=== PATIENT | male | born 1990 | race Caucasian/White ===

== ENCOUNTER → 2023-12-07 | Outpatient (CLI) | payer BC, SELFPAY ==
--- NOTE | 2023-12-04 16:00 | LES_PTH ---
PATHOLOGY RESULTS PATIENT: PASCUAL GOULD LOC: [facility] U#:[id number] AGE/SX: 33/M ROOM: RE12/07/[address]: Dr. Jarrett Allen MD : [id number] BED: DIS: 12/07/2023 SPEC #: [id number] RECD: 12/07/23 10:12 STATUS: PASQUALE REArron #: [id number] RIMMA: 12/04/23 16:[address]: Jarrett Allen DEPT: SURGICAL PATHOLOGY RECD BY: Dee Dee Jacobson ENTERED: 12/07/23 10:41 SP TYPE: Lesion OTHR DR: No Primary Care Phys Tissues: Skin of eyelid, NOS Procedures: Surgery Specimen Level IV HEADER OPERATION: Right upper eyelid lesion excision PRE-OP DIAGNOSIS: Right upper eyelid lesion TISSUE SUBMITTED: Right upper eyelid lesion MICROSCOPIC DIAGNOSIS Right upper eyelid lesion, biopsy: Consistent with benign eccrine cyst, mildly inflamed. AM:yokasta 12/08/2023 MICROSCOPIC DESCRIPTION Slides are reviewed. GROSS DESCRIPTION Received in fixative is one container labeled with the patient's name and designated right upper eyelid lesion. The specimen consists of an irregular fragment of light romero soft tissue measuring 0.5 x 0.2 x 0.1 cm. The specimen is totally submitted in one cassette. / AM:yokasta 12/07/2023 TC:5 CPT: 26722
--- OUTSIDE RECORDS SUMMARY | 2023-12-07 11:53 | XMS RPT_ITS | CCD ---
Author Name Unknown Address [address] [place] [address] Organization [facility] Care Team Providers Care Winder Operator Name Role Phone Unavailable Primary Care Provider Unavailabl e ANNA DEVI Referring Unavailable Unavailable Primary Care Provider Unavailabl e PROVIDER, UNKNOWN Attending Unavailable PROVIDER, UNKNOWN Admitting Unavailable PROVIDER, UNKNOWN Admitting Unavailable PROVIDER, UNKNOWN Attending Unavailable ROGELIO MEZA Attending Unavailable BRANDAN SEARS Referring Unavailable PROVIDER, UNKNOWN Admitting Unavailable Medications Current Medications Medication Drug Class(es) Dates Sig (Normalized) Sig (Original) acetaminophen 500 mg oral tablet (3 sources) Start: 07-17-2023 End: 07-17-2023 take 1 tablet by mouth every six hours as needed for pain acetaminophen (TYLENOL) 500 MG tablet Take 1 Tablet by mouth every 6 hours as needed for Pain or Fever. 30 Tablet 0 07/17/2023 Active acetaminophen 325 mg / oxyCODONE hydrochloride 5 mg oral tablet (2 sources) Opioid Agonist Start: 07-17-2023 End: 07-20-2023 take 1 tablet by mouth every six hours as needed for pain oxyCODONE-acetamino phen (PERCOCET) 5-325 mg per tablet Indications: Lumbar transverse process fracture, closed, initial encounter (HCC) Take 1 Tablet by mouth every 6 hours as needed for Pain for up to 3 days. 12 Tablet 0 07/17/2023 07/20/2023 Active lidocaine 0.04 mg/mg medicated patch (3 sources) Antiarrhythmic, Amide Local Anesthetic Start: 07-17-2023 lidocaine (LIDODERM) 4 % patch Completed/Discontinued Medications Medication Drug Class(es) Dates Sig (Normalized) Sig (Original) cyclobenzaprine hydrochloride 10 mg oral tablet (1 source) Muscle Relaxant Start: 12-09-2021 take 0.5-1 tablets by mouth three times daily as needed for muscle spasms cyclobenzaprine (FLEXERIL) 10 mg tablet Indications: Right leg pain Take 0.5-1 tablets by mouth three times daily as needed for muscle spasm. 20 tablet 0 12/09/2021 Active Problems Active Problems Problem Classification Problem Date Documented Da te Episodic/Chronic Abdominal pain (1 source) Right flank pain; Translations: [Unspecified abdominal pain] 07-17-2023 Episodic Conditions associated with dizziness or vertigo (1 source) Dizziness; Translations: [Dizziness and giddiness] Episodic E Codes: Fall (1 source) Fall; Translations: [Unspecified fall, initial encounter] 07-17-2023 Episodic Other fractures (1 source) Closed fracture lumbar vertebra, transverse process ; Translations: [Unspecified fracture of unspecified lumbar vertebra, initial encounter for closed fracture] 07-17-2023 Episodic Past or Other Problems Problem Classification Problem Date Documented Da te Episodic/Chronic Other connective tissue disease (1 source) Pain in right leg; Translations: [Right leg pain] Onset: 12-10-2021 Episodic Results Test Name Value Interpretation Reference Range Facil ity Vital Signs Date Time Vital Sign Value Performing Clinician Faci lity 07-17-2023 14:03-0400 Body temperature 98.2 [degF] Rogelio Meza MD Work Phone: [employer] 07-17-2023 14:03-0400 Diastolic blood pressure 89 mm[Hg] Rogelio Meza MD Work Phone: [employer] 07-17-2023 14:03-0400 Heart rate 85 /min Rogelio Meza MD Work Phone: [employer] 07-17-2023 14:03-0400 Respiratory rate 16 /min Rogelio Meza MD Work Phone: [employer] 07-17-2023 14:03-0400 SaO2% (BldA) [Mass fraction] 99 % Rogelio Meza MD Work Phone: [employer] 07-17-2023 14:03-0400 Systolic blood pressure 139 mm[Hg] Rogelio Meza MD Work Phone: [employer] 09-18-2022 15:49-0500 Body temperature 98.8 [degF] Blaine John APRN.CNP Work Phone: [facility] 09-18-2022 15:49-0500 Body weight 96.34 kg Blaine Pendlebury [employer] Work Phone: [facility] 09-18-2022 15:49-0500 Diastolic blood pressure 74 mm[Hg] Blaine Pendlebury [employer]CH[employer]IC Work Phone: [facility] 09-18-2022 15:49-0500 Heart rate 79 /min Blaine Pendlebury [employer] Work Phone: [facility] 09-18-2022 15:49-0500 Respiratory rate 16 /min Blaine Pendlebury [employer] Work Phone: [facility] 09-18-2022 15:49-0500 SaO2% (BldA) [Mass fraction] 98 % [facility] [employer]BI[employer] MECH[employer]IC Work Phone: [facility] 09-18-2022 15:49-0500 Systolic blood pressure 126 mm[Hg] Blaine [facility] [employer] MECH[employer]IC Work Phone: [facility] Encounters Encounter Date Encounter Type Care Provider Facility Start: 07-17-2023 End: 07-17-2023 Emergency department patient visit ROGELIO MEZA Facility:[facility] Start: 07-17-2023 End: 07-17-2023 ambulatory UNKNOWN PROVIDER Facility:[facility] Start: 07-17-2023 End: 07-17-2023 Subsequent hospital visit by physician Ed Xray 1 [facility] Radiology Procedures Date Procedure Procedure Detail Performing Clinician Start: 07-17-2023 Ct abdomen & pelvis w/contrast material Rogelio Meza MD Work Phone: Start: 07-17-2023 CT of thoracic and l umbar spine Rogelio Meza MD Work Phone: Start: 07-17-2023 Antibody hiv-1&hiv-2 single result Rogelio Meza MD Work Phone: Start: 07-17-2023 Basic metabolic pane l calcium total Rogelio Meza MD Work Phone: Start: 10-06-2023 Radiologic exam ches t 2 views Brandan Sears [employer]CH[employer]IC Work Phone: Plan of Treatment Date Care Activity Detail Author Start: 02-28-2038 Shingles (RZV) Vacci ne (1 of 2) Shingles (RZV) Vaccine (1 of 2) [facility] Start: 06-12-2023 COVID-19 Vaccine ( season) COVID-19 [facility]ine [facility] Start: 06-12-2023 Influenza vaccination Influenza Vacc ine (#1) [facility] Start: 02-28-2023 Lipid panel Cholesterol [facility] Start: 06-12-2022 Influenza vaccination INFLUENZA (#1) [facility] Start: 10-12-2021 DEPRESSION ASSESSMENT DEPRESSION ASS ESSMENT [facility] Start: 08-15-2021 COVID-19 VACCINE (3 - Booster for Pfizer series) COVID-19 VACCINE (3 - Booster for Pfizer series) [facility] Start: 02-28-2015 HPV Vaccine (optiona l start 27-45 years) HPV Vaccine (optional start 27-45 years) [facility] Start: 02-28-2007 Urine microalbumin profile DTAP,TDAP,TD (1 - Tdap) [facility] Start: 02-28-2006 HEPATITIS C SCREENING HEPATITIS C SC REENING [facility] Start: 02-28-2006 Hepatitis C screening Hepatitis C An tibody [facility] Start: 02-28-2006 HIV SCREENING HIV SCREENING [facility] Start: 02-28-2006 Tetanus + diphtheria + acellular pertussis vaccine (product) Tdap Booster [facility] Start: 02-28-1994 PNEUMOCOCCAL (1 - PCV) PNEUMOCOCCAL (1 - PCV) [facility] Start: 1988 HEPATITIS B (1 of 3 - 3-dose series) HEPATITIS B (1 of 3 - 3-dose series) [facility] Immunizations Immunization Date Immunization Notes Care Provider John schwartz 12-03-1999 hepatitis B vaccine, adult dosage 1 [facility] 05-31-1999 hepatitis B vaccine, pediatric or pediatric/adolescent dosage Mh 1 [facility] 05-31-1999 trivalent poliovirus vaccine, live, oral 1 [facility] Payers Date Payer Category Payer Unknown [id number] 2023 Unknown [id number] 2023 Worker's Compensation WORKER'[employer] C O[employer] - OTHER WORK CO* OTHER WORKERS COMP [id number] 2023-Present [address] [place] [address] Worker's Comp [id number] 2018 Unknown [employer] C[employer] PPO OOS [id number] 2018-Present [phone] [address] [place] [address] PPO [id number] 2018 Unknown [id number] 1988 Unknown [id number] 1988 Unknown [id number] 1988 Unknown [id number] Social History Date Type Detail Facility Start: 09-18-2022 Tobacco smoking stat RUSTIS Smokes tobacco daily [facility] Start: 09-18-2022 Tobacco use and exposure Smokeless t obacco non-user [facility] Start: 09-18-2022 Alcohol intake Lifetime non-d eulalio (finding) [facility] Start: 09-18-2022 Tobacco Comment [facility] Start: 1990 Sex Assigned At Male [facility] Tobacco smoking stat RUSTIS Tobacco smoking consumption unknown [facility] Start: 1988 Sex Assigned At Not on file M [facility] Gender identity Not on file [facility] Hospital Discharge instructions 07-17-2023 Discharge InstructionsAttachments Note Date & Type Note Facility 07-17-2023 Hospital Discharg e instructions Rogelio Meza MD - 07/17/2023 7:58 PM EDT Do not use tylenol#3 (codeine/acetaminophen), percocet (oxycodone/acetaminophen), vicodin (hydrocodone/acetaminophen), muscle relaxants or any other strong pain medications when driving, caring for children, using tools, working or while doing any activity that would be dangerous if you had been drinking alcohol or were not fully in control of yourself physically and/or mentally. You need to follow some important guidelines if you are taking narcotics that your health care provider prescribed for you: Do not share your narcotic medicine with anyone. If you are seeing more than one health care provider, tell each one that you are taking narcotics for pain. Taking too much can cause an overdose or addiction. When your pain begins to lessen, talk with the health care provider you see for pain about switching to another kind of pain reliever. Store your narcotics safely. Keep them out of reach of children and others in your home. During your Emergency Department evaluation, items were identified that require you to follow up. Your evaluation discovered Indeterminate 1.6 cm right hepatic lobe hypodense lesion, may represent small hemangioma although this is incompletely characterized based on CT scan. It is recommended that you see your doctor to discuss a nonemergent MR liver with dotarem may be considered for further evaluation. to follow up on this problem. It is very important that you follow up as instructed as the issues identified today could be serious. Procedures done during this visit: None The following attachments cannot be sent through Care Everywhere.Flank Pain Discharge Instructions (Andorran)documented in this encounter [facility] Physician Emergency department Note 07-17-2023 Rogelio Meza MD - 07/17/2023 4:14 PM EDT Note Date & Type Note Facility 07-17-2023 Physician Emergen cy department Note Images from the original note were not included. EMERGENCY DEPARTMENT - VISIT NOTE HISTORY OF PRESENT ILLNESS Patient presents with: Fall - Mechanical fall backward from standing, wooden palette landed on top of pt, hit in side and back Concession Attendant: not needed - patient preferred language is Andorran. The history is provided by the Patient. Mustapha Agudelo is a 33 year old male with no significant past medical history per chart review presenting to the ED for R flank pain s/p fall. Reports that approximately 12:30 p.m. he was at work on unwrapping a wooden palette. Reports he slipped on plastic and fell, striking his right flank on some equipment. Denies hitting his head or LOC. He is not on anticoagulation. Since then, describes pain in his right flank that is severe. At times, radiates down his right leg. Walking seems to make it worse. Nothing makes it better. No abdominal pain. No nausea or vomiting. At times, feels short of breath due to the pain. No chest pain. PAST HISTORY --- Pertinent Past History: No significant pmh Pertinent Family History: No family history on file. Pertinent Social History: Social History Occupational History Not on file Tobacco Use Smoking status: Not on file Smokeless tobacco: Not on file Substance and Sexual Activity Alcohol use: Not on file Drug use: Not on file Sexual activity: Not on file PHYSICAL EXAM ---- BP 139/89 Pulse 85 Temp 98.2 F (36.8 C) (Oral) Resp 16 SpO2 99% Constitutional Nursing triage notes reviewed, Vital signs reviewed, Alert, Awake and No acute distress HENT No stridor and Head atraumatic Eyes Nonicteric and Noninjected Neck Supple and No stridor Lungs Clear to auscultation, No wheezing, No rales and No respiratory distress Heart Regular rate and rhythm and No murmurs Abdomen Soft, Nondistended, Nontender and No rebound/guarding : R flank mild TTP w/ small ecchymosis and abrasion; L flank no TTP Back: no midline C/T/L ttp Extremities No edema and No calf tenderness Neuro Alert normally oriented and Normal speech. 5/5 strength b/l UE/LE, sensation intact to light touch throughout. Normal gait Skin Warm and Dry Psych Normal affect, Good eye contact and Cooperative MEDICAL DECISION MAKING and ED COURSE Nursing triage and assessment notes reviewed and incorporated Review of External (Non- ED) Notes: Office visit from in [place] reviewed and shows last seen 09/18/22 for dizziness Management Decisions: Admission considered but pain controlled here, agreeable to DC Medication Management: Medications prescribed - see visit medications. Social Determinants of Health that Impacted Management: Occupational exposure to risk factors, therefore workers comp paper work filled out, encouraged PM&R f/u Independent Test Interpretation: Lab studies reviewed, see ed course CT scans personally reviewed and interpreted, see ed course . Final decision-making pending radiology read. Course & Interpretation of Results: ED Course as of 07/17/232126Jul 17, 2023 1648 COMPLETE BLOOD COUNT W/DIFF (RAPID RESPONSE LABS)(!): WBC 12.9(!) RBC 4.53 Hemoglobin 15.0 Hematocrit 42.7 MCV 94 MCH 33.1 MCHC 35.1 Platelet 349 RDW-CV% 13.1 MPV 7.3(!) Neutrophils 76.5(!) Neutrophil # 9.88(!) Lymphocytes 16.7(!) Lymph Absolute 2.16 Monocytes 5.4 Monocyte Absolute 0.70 Eosinophil 0.8 Eosinophil Absolute 0.11 Basophils 0.6 Basophil # 0.07 MDW 16 CBC is not concerning for clinically significant anemia, or thrombocytopenia. +leukocytosis c/w stress response [JS] 1700 Basic Metabolic Panel: Glucose 89 Sodium 140 Potassium 4.4 Carbon Dioxide 23 Chloride 106 BUN 16 Creatinine 1.20 Calcium 9.9 Anion Gap 15 Estimated GFR 81 BMP is not concerning for clinically significant electrolyte abnormality or JOHN. [JS] 1838 NSGY paged [JS] 2497 CT findings incl incidental discussed w/ pt, [JS] 1952 Pain improved, ok w/ dc [JS] 2125 CT CHEST / ABDOMEN / PELVIS WITH IV CONTRAST I personally reviewed and interpreted CT CAP no free air [JS] 2125 CT T-SPINE AND L-SPINE RECONS W/O CONTRAST I personally reviewed and interpreted L1 TP fx [JS] ED Course User Index [JS] Rogelio Meza MD PROCEDURE NOTE: Initial Fracture Care Informed consent, after discussion of the risks, benefits, and alternatives to the procedure, was obtained verbally from the patient prior to procedure. The patient was identified using two patient identifiers: Yes. The H&P along with required diagnostics are available in Epic: Yes The correct procedure was verified: Yes Procedural site identified: Yes Presence of required equipment verified prior to starting procedure: Yes Patient allergies identified or reviewed: Yes Site marking done: Not indicated A timeout to verify the correct patient, procedure, and site was performed immediately prior to the procedure The patient had a fracture of the L1 and L2 right transverse process. The fracture was not displaced and did not require manipulation for current care The fracture was appropriately immobilized and was neurovascularly intact at discharge. Rogelio Meza MD Medical Decision Makin33 year old male with no significant past medical history per chart review presenting to the ED for R flank pain s/p fall. On arrival, hemodynamically stable, afebrile, no acute distress. Neurologically intact. Exam with tenderness over the right flank with a small overlying ecchymosis. Labs are reassuring as detailed above. CT reveals L1 and L2 TP fractures. No other injuries identified. Per Trauma guidelines, no indication for neurosurgical/spine involvement. Patient does not want to take anything strong or addictive for pain. Amenable to Toradol, muscle relaxants, Lidoderm. Will write for multimodal pain control as an outpatient and give Percocet for breakthrough pain. Patient and in agreement with plan. Incidental liver finding was also discussed with patient and who expressed understanding. Encouraged PCP, PM&R f/u. The patient was given an opportunity to ask questions and none were expressed at that time. Warning signs/precautions for return to the ED were discussed. The patient verbalized understanding and was agreeable to plan. IMPRESSION AND DISPOSITION Clinical Impression Diagnosis Comment Acute right flank pain [R10.9] Fall, initial encounter [W19.XXXA] Lumbar transverse process fracture, closed, initial encounter ([facility]) [S32.009A] Disposition: Home The patient has received a medical screening examination and within reasonable clinical confidence an emergency medical condition was identified and has been stabilized. Counseling: Spoke with the patient and discussed today s findings, in addition to providing specific details for the plan of care and expected course. They were given the opportunity to ask questions. Discussed return precautions and importance of follow-up. Advised to follow-up with pcp, PM&R. Advised to return to the ED for changing or worsening symptoms, new symptoms, complaint specific precautions, and precautions listed on the discharge paperwork. Educated on the common potential side effects of medications prescribed. Rogelio Meza MD [facility] Emergency department Note 07-17-2023 Rogelio Meza MD - 07/17/2023 4:14 PM EDTLuBrandan APRN-TL - 07/17/2023 2:01 PM EDT Note Date & Type Note Facility 07-17-2023 Emergency departm ent Note Images from the original note were not included. EMERGENCY DEPARTMENT - VISIT NOTE HISTORY OF PRESENT ILLNESS Patient presents with: Fall - Mechanical fall backward from standing, wooden palette landed on top of pt, hit in side and back Concession Attendant: not needed - patient preferred language is Andorran. The history is provided by the Patient. Mustapha Agudelo is a 33 year old male with no significant past medical history per chart review presenting to the ED for R flank pain s/p fall. Reports that approximately 12:30 p.m. he was at work on unwrapping a wooden palette. Reports he slipped on plastic and fell, striking his right flank on some equipment. Denies hitting his head or LOC. He is not on anticoagulation. Since then, describes pain in his right flank that is severe. At times, radiates down his right leg. Walking seems to make it worse. Nothing makes it better. No abdominal pain. No nausea or vomiting. At times, feels short of breath due to the pain. No chest pain. PAST HISTORY --- Pertinent Past History: No significant pmh Pertinent Family History: No family history on file. Pertinent Social History: Social History Occupational History Not on file Tobacco Use Smoking status: Not on file Smokeless tobacco: Not on file Substance and Sexual Activity Alcohol use: Not on file Drug use: Not on file Sexual activity: Not on file PHYSICAL EXAM ---- BP 139/89 Pulse 85 Temp 98.2 F (36.8 C) (Oral) Resp 16 SpO2 99% Constitutional Nursing triage notes reviewed, Vital signs reviewed, Alert, Awake and No acute distress HENT No stridor and Head atraumatic Eyes Nonicteric and Noninjected Neck Supple and No stridor Lungs Clear to auscultation, No wheezing, No rales and No respiratory distress Heart Regular rate and rhythm and No murmurs Abdomen Soft, Nondistended, Nontender and No rebound/guarding : R flank mild TTP w/ small ecchymosis and abrasion; L flank no TTP Back: no midline C/T/L ttp Extremities No edema and No calf tenderness Neuro Alert normally oriented and Normal speech. 5/5 strength b/l UE/LE, sensation intact to light touch throughout. Normal gait Skin Warm and Dry Psych Normal affect, Good eye contact and Cooperative MEDICAL DECISION MAKING and ED COURSE Nursing triage and assessment notes reviewed and incorporated Review of External (Non- ED) Notes: Office visit from in [place] reviewed and shows last seen 09/18/22 for dizziness Management Decisions: Admission considered but pain controlled here, agreeable to DC Medication Management: Medications prescribed - see visit medications. Social Determinants of Health that Impacted Management: Occupational exposure to risk factors, therefore workers comp paper work filled out, encouraged PM&R f/u Independent Test Interpretation: Lab studies reviewed, see ed course CT scans personally reviewed and interpreted, see ed course . Final decision-making pending radiology read. Course & Interpretation of Results: ED Course as of 07/17/232126Jul 17, 2023 1648 COMPLETE BLOOD COUNT W/DIFF (RAPID RESPONSE LABS)(!): WBC 12.9(!) RBC 4.53 Hemoglobin 15.0 Hematocrit 42.7 MCV 94 MCH 33.1 MCHC 35.1 Platelet 349 RDW-CV% 13.1 MPV 7.3(!) Neutrophils 76.5(!) Neutrophil # 9.88(!) Lymphocytes 16.7(!) Lymph Absolute 2.16 Monocytes 5.4 Monocyte Absolute 0.70 Eosinophil 0.8 Eosinophil Absolute 0.11 Basophils 0.6 Basophil # 0.07 MDW 16 CBC is not concerning for clinically significant anemia, or thrombocytopenia. +leukocytosis c/w stress response [JS] 1700 Basic Metabolic Panel: Glucose 89 Sodium 140 Potassium 4.4 Carbon Dioxide 23 Chloride 106 BUN 16 Creatinine 1.20 Calcium 9.9 Anion Gap 15 Estimated GFR 81 BMP is not concerning for clinically significant electrolyte abnormality or JOHN. [JS] 183 NSGY paged [JS] 1849 CT findings incl incidental discussed w/ pt, [JS] 1952 Pain improved, ok w/ dc [JS] 2125 CT CHEST / ABDOMEN / PELVIS WITH IV CONTRAST I personally reviewed and interpreted CT CAP no free air [JS] 2125 CT T-SPINE AND L-SPINE RECONS W/O CONTRAST I personally reviewed and interpreted L1 TP fx [JS] ED Course User Index [JS] Rogelio Meza MD PROCEDURE NOTE: Initial Fracture Care Informed consent, after discussion of the risks, benefits, and alternatives to the procedure, was obtained verbally from the patient prior to procedure. The patient was identified using two patient identifiers: Yes. The H&P along with required diagnostics are available in Epic: Yes The correct procedure was verified: Yes Procedural site identified: Yes Presence of required equipment verified prior to starting procedure: Yes Patient allergies identified or reviewed: Yes Site marking done: Not indicated A timeout to verify the correct patient, procedure, and site was performed immediately prior to the procedure The patient had a fracture of the L1 and L2 right transverse process. The fracture was not displaced and did not require manipulation for current care The fracture was appropriately immobilized and was neurovascularly intact at discharge. Rogelio Meza MD Medical Decision Makin33 year old male with no significant past medical history per chart review presenting to the ED for R flank pain s/p fall. On arrival, hemodynamically stable, afebrile, no acute distress. Neurologically intact. Exam with tenderness over the right flank with a small overlying ecchymosis. Labs are reassuring as detailed above. CT reveals L1 and L2 TP fractures. No other injuries identified. Per Trauma guidelines, no indication for neurosurgical/spine involvement. Patient does not want to take anything strong or addictive for pain. Amenable to Toradol, muscle relaxants, Lidoderm. Will write for multimodal pain control as an outpatient and give Percocet for breakthrough pain. Patient and in agreement with plan. Incidental liver finding was also discussed with patient and who expressed understanding. Encouraged PCP, PM&R f/u. The patient was given an opportunity to ask questions and none were expressed at that time. Warning signs/precautions for return to the ED were discussed. The patient verbalized understanding and was agreeable to plan. IMPRESSION AND DISPOSITION Clinical Impression Diagnosis Comment Acute right flank pain [R10.9] Fall, initial encounter [W19.XXXA] Lumbar transverse process fracture, closed, initial encounter ([facility]) [S32.009A] Disposition: Home The patient has received a medical screening examination and within reasonable clinical confidence an emergency medical condition was identified and has been stabilized. Counseling: Spoke with the patient and discussed today s findings, in addition to providing specific details for the plan of care and expected course. They were given the opportunity to ask questions. Discussed return precautions and importance of follow-up. Advised to follow-up with pcp, PM&R. Advised to return to the ED for changing or worsening symptoms, new symptoms, complaint specific precautions, and precautions listed on the discharge paperwork. Educated on the common potential side effects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
== END | disposition home or self-care (01) ==
LOC: LABSPEC 10:33
PROVIDERS: Referring Provider Ophthalmology; Visit Provider Ophthalmology
DX: H02.821 Cysts of right upper eyelid (principal)
CPT/HCPCS: 88305